=== PATIENT | male | born 1965 | race Caucasian/White ===

== ENCOUNTER 2016-10-20 15:51 | Emergency (ER) | payer MEDICAID, OTHER ==
--- NOTE | 2016-10-20 18:38 | EDPHY ---
H & P Time Seen by Provider: 10/20/16 16:51 HPI/ROS: CHIEF COMPLAINT: Neck pain HISTORY OF PRESENT ILLNESS: 51-year-old male presents to the emergency department with ongoing chronic neck pain. Patient states that he has had pain in his neck for years. He is having pain more so on the right side of his neck. He denies any acute trauma or injury. He does however report lifting something heavy several days ago and he noted that the pain is neck got worse. He denies paresthesias in his upper extremities. Denies feelings of weakness in his upper extremities. Denies chest pain or difficulty breathing. Denies headache. Denies low back pain. No treatment at home. He has never seen a doctor for his neck and he has never had any imaging studies. REVIEW OF SYSTEMS: Constitutional: No fever, no chills. Eyes: No double or blurry vision. ENT: No sore throat. Respiratory: No cough, no shortness of breath. Cardiac: No chest pain. Gastrointestinal: No abdominal pain, vomiting or diarrhea. Genitourinary: No dysuria. Musculoskeletal: Neck pain as above. No back pain. Skin: No rashes. Neurological: No headache. Past Medical/Surgical History: Chronic neck pain, splenectomy, orthopedic injuries Social History: and lives in [place] Smoking Status: Never smoked Physical Exam: General Appearance: Alert, no distress. Eyes: Pupils equal and round. Extraocular motions are all intact. ENT: Mouth: Mucous membranes moist. Respiratory: No wheezing, rhonchi, or rales, lungs are clear to auscultation. Cardiovascular: Regular rate and rhythm. Gastrointestinal: Abdomen is soft and nontender, no masses, no rebound or guarding, bowel sounds normal. Neurological: Alert and oriented x 3, cranial nerves II through XII grossly intact Skin: Warm and dry, no rashes. Musculoskeletal: Nontender to palpate along the cervical, thoracic or lumbar spine. Neck is supple. He does have some mild pain with palpation to the right posterior lateral neck. No palpable crepitus or other bony abnormality. Extremities: Full range of motion and no peripheral edema. Psychiatric: Patient is oriented X 3, there is no agitation. Constitutional: Initial Vital Signs Temperature (C) 36.5 C 10/20/16 16:03 Heart Rate 92 10/20/16 16:03 Respiratory Rate 16 10/20/16 16:03 Blood Pressure 105/76 10/20/16 16:03 O2 Sat (%) 95 10/20/16 16:03 O2 Delivery Mode Room Air Allergies/Adverse Reactions: No Known Allergies Allergy (Unverified 10/20/16 16:07) Home Medications: Medication Instructions Recorded Cyclobenzaprine [Flexeril] 10 mg PO TIDPRN PRN #12 tab 10/20/16 Medical Decision Making - Diagnostics Imaging: X-rays of the cervical spine reveals degenerative changes without fracture. This was reviewed by myself the PAC system as well as by the radiologist. ED Course/Re-evaluation: 51-year-old male presents to the emergency department by private vehicle with ongoing pain in his neck. He denies numbness or tingling in his fingers or feelings of weakness in his upper extremity. His exam is unremarkable. X-rays of the cervical spine were negative for fracture. He has normal alignment. He has some degenerative changes noted. Patient was encouraged to use anti-inflammatories. He was given a prescription for Flexeril. He was also given referral to on-call neurosurgeon. I do not think additional imaging studies are necessary. The patient understands at some point he may require outpatient MRI, however I do not think this is emergently necessary in the emergency department. The patient has a normal neurologic examination. He has symmetrical reflexes and normal equal strength for the upper extremities bilaterally. His radial, median, and ulnar nerves are all intact. Differential Diagnosis: Neck pain including but not limited to muscular pain, herniated disc, spine fracture Departure - Departure Disposition: Home, Routine, Self-Care Clinical Impression: Chronic neck pain Condition: Good Instructions: Neck Pain (ED) Additional Instructions: Ibuprofen 600 mg every 8 hours as needed for pain. Flexeril as needed for muscular spasm. Return to the emergency department if you developed numbness or tingling in her fingers, feelings of weakness in her right hand, increasing pain, or if you feel worse in any way. Referrals: ELIZA RECINOS [Other] - As per Instructions Prescriptions: Cyclobenzaprine [Flexeril] 10 mg PO TIDPRN PRN #12 tab PRN Reason: Spasms
[2016-10-20 18:45] VITALS: BP 119/73; PULSE 73; RESP 14; TEMP 98.6; O2SAT 93
== END 2016-10-20 18:44 | disposition home or self-care (01) ==
DX: M54.2 Cervicalgia (principal); G89.29 Other chronic pain

== ENCOUNTER 2017-05-16 13:48 | Emergency (ER) | payer MEDICAID ==
[2017-05-16 13:58] VITALS: RESP 16; TEMP 97.7; O2SAT 94
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
[2017-05-16 15:06] VITALS: BP 103/64; PULSE 86
== END 2017-05-16 15:05 | disposition home or self-care (01) ==
DX: S39.012A Strain of muscle, fascia and tendon of lower back, initial encounter (principal); X58.XXXA Exposure to other specified factors, initial encounter